=== PATIENT | female | born 1965 | race Caucasian/White ===

== ENCOUNTER 2020-05-26 10:24 | Inpatient (IN) | payer OTHER ==
[~2020-05-26] VITALS: Ht 167.6 cm; Wt 92.3 kg
[2020-05-26 10:28] VITALS: BP 125/80
[2020-05-26 11:09] LABS: URINE BLOOD 2+ (Negative); URINE CLARITY CLEAR; URINE COLOR DARK YELLOW; URINE GLUCOSE-RANDOM NEGATIVE (Negative); URINE KETONES NEGATIVE (Negative); URINE LEUKOCYTES-REFLEX TRACE (Negative); URINE NITRITE-REFLEX NEGATIVE (Negative); URINE PROTEIN 2+ (Negative); URINE SPECIFIC GRAVITY >= 1.030 (1.005-1.030)
[2020-05-26 11:11] LABS: ICTOTEST (BILI CONFIRMATORY) Negative (Negative); URINE BILIRUBIN 2+ (Negative)
[2020-05-26 11:21] LABS: BACTERIA-REFLEX >30 Many /HPF (None Seen); MUCUS >6 Heavy strn/LPF (None Seen); SQUAMOUS >10 Many /LPF (0-3); URINE RBC 3-10 Few /HPF (0-2); URINE WBC-REFLEX 6-15 Few /HPF (0-5)
[2020-05-26 11:22] LABS: CRYSTALS None Seen /LPF (None Seen); FINE GRANULAR CASTS 0-3 Few /LPF (None Seen); HYALINE CASTS 4-10 Moderate /LPF (None Seen)
[2020-05-26 11:28] LABS: ABSOLUTE BASOPHILS 0.1 thou/uL (0.0-0.2); ABSOLUTE EOSINOPHILS 0.1 thou/uL (0.0-0.7); ABSOLUTE LYMPHOCYTES 1.2 thou/uL (0.8-5.3); ABSOLUTE MONOCYTES 0.8 thou/uL (0.0-1.2); ABSOLUTE NEUTROPHILS 8.4 thou/uL (1.6-8.1); BASOPHILS 0.9 %; EOSINOPHILS 1.2 %; HEMATOCRIT 42.4 % (37.0-47.0); HEMOGLOBIN 13.9 gm/dL (12.0-15.0); LYMPHOCYTES 11.4 %; MCH 29.2 pg (26.0-34.0); MCHC 32.9 g/dL (28.0-37.0); MCV 88.9 fL (80.0-100.0); MONOCYTES 7.9 %; MPV 8.6 fl. (7.2-11.1); NUCLEATED RBCS 0 /100WBC; PLATELET COUNT* 306 thou/uL (150-400); POLYS 78.6 %; RBC 4.77 mil/uL (4.20-5.00); RDW-CV 14.3 % (10.5-14.5); WBC 10.7 thou/uL (4.0-11.0)
[2020-05-26 11:39] LABS: CALCIUM 8.9 mg/dL (8.5-10.1); CREATININE 1.1 mg/dL (0.6-1.3); POTASSIUM 4.5 mmol/L (3.5-5.1)
[2020-05-26 11:44] LABS: ALBUMIN 3.1 g/dL (3.4-5.0); TOTAL BILIRUBIN 1.7 mg/dL (<0.1-1.0); TOTAL PROTEIN 6.7 g/dL (6.4-8.2)
[2020-05-26 14:35] VITALS: BP 152/93
[2020-05-26 16:10] LABS: AMP/METHAMP POSITIVE (Negative); BARBITURATES Negative (Negative); BENZODIAZEPINES Negative (Negative); COCAINE Negative (Negative); METHADONE Negative (Negative); OPIATES Negative (Negative); PCP Negative (Negative); THC Negative (Negative)
[2020-05-26 18:07] VITALS: BP 122/77
[2020-05-26 20:00] VITALS: BP 156/93
[2020-05-27] VITALS: BP 137/74
[2020-05-27 04:00] VITALS: BP 121/66
[2020-05-27 04:41] LABS: HEMATOCRIT 40.4 % (37.0-47.0); MCH 28.8 pg (26.0-34.0); MCHC 32.2 g/dL (28.0-37.0); MCV 89.6 fL (80.0-100.0); MPV 8.4 fl. (7.2-11.1); RBC 4.51 mil/uL (4.20-5.00); RDW-CV 14.4 % (10.5-14.5); WBC 8.8 thou/uL (4.0-11.0)
[2020-05-27 05:24] LABS: ALBUMIN 2.7 g/dL (3.4-5.0); CALCIUM 8.3 mg/dL (8.5-10.1); CREATININE 1.1 mg/dL (0.6-1.3); MAGNESIUM 2.1 mg/dL (1.8-2.4); POTASSIUM 4.3 mmol/L (3.5-5.1); TOTAL BILIRUBIN 0.7 mg/dL (<0.1-1.0); TOTAL PROTEIN 6.1 g/dL (6.4-8.2)
[2020-05-27 08:00] VITALS: BP 152/99
[2020-05-27 12:00] VITALS: BP 138/82
--- NOTE | 2020-05-27 15:53 | 2DMMODE ---
[place] [address] 2 D/M-MODE ECHOCARDIOGRAM Name: JEREMIAS STUART Room: [address] IN [facility]#: [id number] Admission: 05/26/20 Attend Phys: Rita Cadena, Discharge: Date of : 69 Date of Service: 05/27/20 1553 Report #: [id number] THIS REPORT FOR: cc: FAM - No family physician/PCP FAM - No family physician/PCP Boaz Hill MD [facility] ~ APPROVED REPORT Study performed: 05/27/2020 10:06:49 EXAM: Comprehensive 2D, Doppler, and color-flow Echocardiogram Patient Location: In-Patient Room #: [facility] Status: routine BSA: 1.89 HR: 113 bpm BP: 121/66 mmHg Rhythm: NSR Other Information Study Quality: Good Indications Chest Pain 2D Dimensions IVSd: 10.40 (7-11mm) LVOT Diam: 21.08 (18-24mm) LVDd: 56.87 mm PWd: 10.55 (7-11mm) Ascending Ao: 31.00 (22-36mm) LVDs: 51.86 (25-40mm) Aortic Root: 27.67 mm Volumes Left Atrial Volume (Systole) LA ESV Index: 43.40 mL/m2 Aortic Valve AoV Peak Wilber.: 0.81 m/s AO Peak Gr.: 2.60 mmHg LVOT Max P.29 mmHg AO Mean Gr.: 1.67 mmHg LVOT Mean P.64 mmHg LVOT Max V: 0.57 m/s AO V2 VTI: 10.00 cm LVOT Mean V: 0.37 m/s SARAH (VTI): 2.64 cm2 LVOT V1 VTI: 7[place]57 [place] [address] 2 D/M-MODE ECHOCARDIOGRAM Name: JEREMIAS STUART Room: [address]#: [id number] Admission: 05/26/20 Attend Phys: Rita Cadena, Discharge: Date of : 69 Date of Service: 05/27/20 1553 Report #: [id number] Mitral Valve E/A Ratio: 1.31 MV Decel. Time: 90.70 ms MV E Max Wilber.: 1.05 m/s MV PHT: 26.30 ms MVA (PHT): 8.36 cm2 Pulmonary Valve PV Peak Wilber.: 0.62 m/s PV Peak Gr.: 1.51 mmHg Tricuspid Valve RAP Estimate: 5.00 mmHg TR Peak Gr.: 25.22 mmHg RVSP: 30.00 mmHg PA Pressure: 30.00 mmHg Left Ventricle Left ventricle is moderately dilated. There is severe global hypokinesis of the left ventricle. There is normal left ventricular wall thickness. Left ventricular systolic function is severely decreased. LVEF is 20%. Grade IV - fixed restrictive diastolic dysfunction. Right Ventricle The right ventricle is normal size. The right ventricular systolic function is normal. Atria Left atrium is moderately dilated. The right atrium size is normal. Aortic Valve Mild aortic valve sclerosis. No aortic regurgitation is present. There is no aortic valvular stenosis. Mitral Valve The mitral valve is normal in structure. Mild to moderate mitral regurgitation. No evidence of mitral valve stenosis. Tricuspid Valve The tricuspid valve is normal in structure. Mild to moderate tricuspid regurgitation. Mild pulmonary hypertension. Pulmonic Valve The pulmonary valve is normal in structure. Trace [place] [address] 2 D/M-MODE ECHOCARDIOGRAM Name: JEREMIAS STUART Room: [address] IN [facility]#: [id number] Admission: 05/26/20 Attend Phys: Rita Cadena, Discharge: Date of : 69 Date of Service: 05/27/20 1553 Report #: [id number] Great Vessels The aortic root is normal in size. IVC is normal in size and collapses >50% with inspiration. Pericardium There is no pericardial effusion. <Conclusion> Left ventricle is moderately dilated. There is normal left ventricular wall thickness. Left ventricular systolic function is severely decreased. LVEF is 20%. The right ventricle is normal size. Left atrium is moderately dilated. The right atrium size is normal. Mild aortic valve sclerosis. No aortic regurgitation is present. There is no aortic valvular stenosis. The mitral valve is normal in structure. Mild to moderate mitral regurgitation. The tricuspid valve is normal in structure. Mild to moderate tricuspid regurgitation. Mild pulmonary hypertension. IVC is normal in size and collapses >50% with inspiration. There is no pericardial effusion. There is severe global hypokinesis of the left ventricle. <ELECTRONICALLY SIGNED> By: Boaz Hill MD, [facility] 05/27/20 1553 1553 1553 Boaz Hill MD, FACC /INF
[2020-05-27 16:00] VITALS: BP 138/64
--- NOTE | 2020-05-27 17:03 | EKG ---
[place] [address] ELECTROCARDIOGRAM REPORT Name: SADEJEREMIAS A Room: [address] ADM IN [facility].#: [id number] Admission: 05/26/20 Attend Phys: Rita Cadena, Discharge: Date of : 69 Date of Service: 05/26/20 1032 Report #: [id number] THIS REPORT FOR: //name// [facility] ED Test Date: 2020-05-26 Test Time: 10:32:19 Pat Name: JEREMIAS STUART Department: Room: [facility] Gender: F Can Tender: TDS : 1965 Requested By: Linda Pearson Order Number: [id number] MD: Boaz Hill Measurements Intervals Manley Rate: 114 P: 53 UT: 153 QRS: 23 QRSD: 85 T: 104 QT: 348 QTc: 480 Interpretive Statements Sinus tachycardia LAE, consider biatrial enlargement Probable left ventricular hypertrophy Nonspecific T abnormalities, lateral leads Borderline prolonged QT interval No previous ECG available for comparison Electronically Signed On 05-27-2020 17:03:06 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
[2020-05-27 20:00] VITALS: BP 117/67
[2020-05-28] VITALS: BP 124/66
[2020-05-28 04:00] VITALS: BP 121/61
[2020-05-28 05:10] LABS: CALCIUM 8.4 mg/dL (8.5-10.1); CREATININE 1.3 mg/dL (0.6-1.3); POTASSIUM 4.1 mmol/L (3.5-5.1)
[2020-05-28 07:31] LABS: CHOLESTEROL 138 mg/dL (<200); HDL CHOLESTEROL 21 mg/dL (>40); LDL CHOLESTEROL 103 mg/dL (<100); SERUM ASSESSMENT Clear; TC:HDL 6.6 Ratio (Not establshd); TRIGLYCERIDE 71 mg/dL (<150); VLDL 14 mg/dL (<40)
[2020-05-28 08:00] VITALS: BP 121/74
[2020-05-28 12:00] VITALS: BP 93/50
[2020-05-28 16:00] VITALS: BP 99/61
[2020-05-28 20:00] VITALS: BP 116/65
[2020-05-29 00:09] VITALS: BP 119/66
[2020-05-29 04:00] VITALS: BP 133/88
[2020-05-29 04:15] LABS: ALBUMIN 2.6 g/dL (3.4-5.0); CALCIUM 8.4 mg/dL (8.5-10.1); CREATININE 1.1 mg/dL (0.6-1.3); POTASSIUM 4.5 mmol/L (3.5-5.1); TOTAL BILIRUBIN 0.4 mg/dL (<0.1-1.0); TOTAL PROTEIN 5.9 g/dL (6.4-8.2)
[2020-05-29 08:00] VITALS: BP 134/71
[2020-05-29] MEDS ORDERED: ASPIRIN325 PO (09:19)
[2020-05-29] MEDS ORDERED: SPIRONOLACTONE25 MG PO (09:19)
[2020-05-29] MEDS ORDERED: COZAAR 50 MG TA50 M1 PO (09:19)
[2020-05-29] MEDS ORDERED: CEFDINIR300 MG PO (09:19)
[2020-05-29] MEDS ORDERED: COREG6.25 MG PO (09:19)
[2020-05-29 11:55] VITALS: BP 134/71
[2020-05-29 13:05] VITALS: BP 134/71
== END 2020-05-29 13:10 | disposition home or self-care (01) | DRG 291 ==
LOC: M.ERS 10:24 → M.TBA-ER 13:40 → M.2W 13:40
PROVIDERS: Physician Assistant; Registered Nurse; ADMIT Internal Medicine; ATTEND Internal Medicine
DX: I50.43 Acute on chronic combined systolic (congestive) and diastolic (congestive) heart failure (principal); J96.01 Acute respiratory failure with hypoxia; N39.0 Urinary tract infection, site not specified; A59.9 Trichomoniasis, unspecified; F17.210 Nicotine dependence, cigarettes, uncomplicated; Z20.822 Contact with and (suspected) exposure to COVID-19; F15.10 Other stimulant abuse, uncomplicated

== ENCOUNTER → 2020-08-06 | Outpatient (CLI) | payer OTHER ==
[~2020-08-06] MED LIST: ASPIRIN325 PO; CEFDINIR300 MG PO; COREG6.25 MG PO; COZAAR 50 MG TA50 M1 PO; SPIRONOLACTONE25 MG PO
--- NOTE | 2020-08-06 18:56 | CARDNUC ---
[place] [address] CARDIAC NUCLEAR IMAGING REPORT Name: SADEJEREMIAS Robb Room: [facility]#: [id number] Admission: 08/06/20 Attend Phys: Félix Bolden, Discharge: Date of : 69 Date of Service: 08/06/20 2235 Report #: [id number] THIS REPORT FOR: cc: FAM - No family physician/PCP FAM - No family physician/PCP Félix Bolden MD [facility] ~ ADDENDUM APPROVED REPORT Imaging Protocol: Stress Tc-99m/Rest Tc-99m 1 day Study performed: 08/06/2020 12:15:00 Indication: Dyspnea, Chest pain Patient Location: Out-Patient Stress Tech: Cecilia Zurita Stress Nurse: Malika Jacobs RN NM Tech:KERI Rea Ht: 5 ft 3 in Wt: 187 lbs BSA: 1.88 m2 HR: 89 bpm BP: 117/87 mmHg BMI: 33.12 Rhythm: NSR Medical History Medical History: Chest pain, dyspnea, cardiomyopathy, increase troponins, Covid-19, severely reduced EF, global hypokinesis, HX hepatic venous congestion, hypoxia, occ. methamphetimine use, increased AST (SGOT), orthopnea, HLD, current smoker, CHF. Medications: Carvedilol, ASA 325 MG, Entresto, Spironolactone. Allergies: No known drug allergies Cardiac Risk Factors: Current Smoker, FHX of CAD, Hyperlipidemia, SOB, cardiomyopathy, increased troponins. Previous Cardiac Procedures: None Pretest Chest Pain Characteristics: No chest pain Exercise History: Physically active Physical Disabilities: Residual Covid 19 weakness, dyspnea. Meds Held (24 hrs): Carvedilol Resting Data Rest SPECT myocardial perfusion imaging was performed in supine position 30 minutes following the intravenous injection of 10.4 mCi of Tc-99m Sestamibi. Time of rest injection: [address] [place] [address] CARDIAC NUCLEAR IMAGING REPORT Name: JEREMIAS STUART Robb Room: [facility]#: [id number] Admission: 08/06/20 Attend Phys: Félix Bolden, Discharge: Date of : 69 Date of Service: 08/06/20 1855 Report #: [id number] The images were gated to evaluate regional wall motion and calculate left ventricular ejection fraction. Administration Route: IV Administration Site: Right Hand Exercise Stress At peak stress, the patient was injected intravenously with 33.4mCi of Tc-99m Sestamibi. Time of stress injection: 14:20 Administration Route: IV Administration Site: Right Hand Heart Rate at time of stress injection: 150 bpm. Patient continued to exercise for 1 minute(s). Gated Stress SPECT was performed 30 minutes after stress injection. The images were gated to evaluate regional wall motion and calculate left ventricular ejection fraction. Prone imaging was performed. Stress Test Details Stress Test: Exercise stress testing was performed using a Celestino protocol. HR Max Heart Rate (APMHR): 167 bpm Resting HR: 89 bpm Target HR (85% APMHR): 141 bpm Max HR Achieved: 150 bpm % of APMHR: 89 Recovery HR: 94 bpm BP Resting BP: 117/87 mmHg Max BP: 175/79 mmHg Recovery BP: 123/79 mmHg ECG Resting ECG: Sinus Rhythm Stress ECG: Sinus Tachycardia ST Change: Downsloping ST depression Maximum ST Deviation: 0.5 mm Arrhythmia: None Recovery ECG: Sinus Rhythm Recovery ST Change: Downsloping ST depression Recovery ST Deviation: 1 mm Recovery Arrhythmia: None Clinical Reason for Termination: Completed protocol, [place] [address] CARDIAC NUCLEAR IMAGING REPORT Name: JEREMIAS STUART Room: [facility]#: [id number] Admission: 08/06/20 Attend Phys: Félix Bolden, Discharge: Date of : 69 Date of Service: 08/06/20 1855 Report #: [id number] Stress Symptoms: Dyspnea, lightheadedness. Exercise duration: 7 min 59 sec Exercise capacity: 10.14 METs Overall Exercise Capacity for Age: Borderline normal to superior. The patient exhibited fair exercise tolerance on standard Celestino protocol. She had no symptoms to suggest ischemia or angina. Nurse Comments A 55 year old female presented for a treadmill Nuclear Stress Test. Treadmill tolerated to stage 3. Recovery unremarkable. Patient was stable and stated she felt good when escorted to Nuclear Medicine for imaging. Exercise capacity - borderline normal to superior. Stress ECG Conclusion The baseline twelve-lead EKG shows sinus rhythm without significant ST segment or T wave abnormality. EKGs obtained during and post exercise stress show sinus tachycardia with a half a millimeter of horizontal ST segment depression in the inferolateral leads that resolved promptly in recovery. There were no stress-induced arrhythmias. Study Quality Study: Fair Artifact: Mild Breast artifactDiaphragmatic artifact Study Data At rest, the left ventricular ejection fraction was 25%.. Post stress, the left ventricular ejection was 34%.. TID = 1.00. Perfusion Perfusion images obtained in the supine position especially at rest show photopenia in the inferior wall and anterior wall consistent with diaphragmatic and breast attenuation artifact. Post-rest images show uniform uptake of the radioisotope throughout the myocardium without defect. Wall Motion LV systolic function appears severely decreased with global hypokinesis. Nuclear Conclusion ECG Findings: equivocal Clinical Findings: negative for ischemia Nuclear Findings: negative for ischemia Exercise Capacity: [place] [address] CARDIAC NUCLEAR IMAGING REPORT Name: JEREMIAS STUART Room: [facility]#: [id number] Admission: 08/06/20 Attend Phys: Félix Bolden, Discharge: Date of : 69 Date of Service: 08/06/20 1855 Report #: [id number] Left Ventricular Function: abnormal Perfusion images show no defect to suggest infarct or ischemia. Global LV systolic function is decreased with severe left ventricular systolic dysfunction. These findings are consistent with a nonischemic cardiomyopathy. This is not a high risk study. <Conclusion> The baseline twelve-lead EKG shows sinus rhythm without significant ST segment or T wave abnormality. EKGs obtained during and post exercise stress show sinus tachycardia with a half a millimeter of horizontal ST segment depression in the inferolateral leads that resolved promptly in recovery. There were no stress-induced arrhythmias. <ELECTRONICALLY SIGNED> By: Félix Bolden MD, FACC 08/06/201854 54 54 Félix Bolden MD, FACC /INF
== END ==
LOC: M.NUC 07-23 10:32
PROVIDERS: ATTEND Internal Medicine Cardiovascular Disease
DX: R07.9 Chest pain, unspecified (principal)